=== PATIENT | male | born 1940 | race Caucasian/White ===

== ENCOUNTER → 2017-08-16 12:33 | Outpatient (CLI) | payer MEDICARE, OTHER ==
[2015-11-19 08:51] VITALS: BMI 27.8
[~2017-08-16 12:33] MED LIST: ASPIRIN EC325 M1 PO; ASPIRIN325 MG PO; BAYER CHEWABLE81 MG PO; CARAFATE1 G/10 ML PO; COVERA-HS240 MG PO; COZAAR100 MG PO; FLOMAX0.4 MG PO; HEMOCYTE PLUS PO; HUMALOG MIX 50/53 ML; HUMULIN N100 U/ML SC; HUMULIN R100 U/ML SC; IMDUR60 MG PO; LANTUS INSULIN10 ML SC; LASIX40 MG PO; LOPRESSOR25 MG PO; NEURONTIN 400400 MG PO; NORCO 5/325 TAB1 TA1 PO; NOVOLIN N100 U/ML SQ; PLAVIX75 MG PO; PROTONIX40 MG PO; ZOCOR10 MG PO; ZOCOR20 MG PO
== END | disposition home or self-care (01) ==
LOC: D.US 12:33
DX: I65.23 Occlusion and stenosis of bilateral carotid arteries (principal)

== ENCOUNTER → 2018-11-01 12:21 | Outpatient (CLI) | payer MEDICARE, OTHER ==
[2015-11-19 08:51] VITALS: BMI 27.8
== END | disposition home or self-care (01) ==
LOC: D.US 12:21
PROVIDERS: ATTEND Internal Medicine Cardiovascular Disease
DX: I65.23 Occlusion and stenosis of bilateral carotid arteries (principal)

== ENCOUNTER → 2019-03-14 09:10 | Outpatient (CLI) | payer MEDICARE, OTHER ==
[2015-11-19 08:51] VITALS: BMI 27.8
--- NOTE | 2019-03-19 18:38 | ST ---
PATIENT:MACK FUNG MEDICAL RECORD: [id number] SEX: M LOCATION:[facility] ORDER #: ADMISSION DATE: 03/14/19 AGE OF PATIENT: 78 REFERRING PHYSICIAN: INTERPRETING PHYSICIAN: MCKENZIE MARIA MD DATE OF SERVICE: 03/14/2019 NUCLEAR STRESS TEST INDICATION: Angina and coronary artery disease, shortness of breath, hypertension, and hyperlipidemia. He was exercised on standard Lexiscan protocol with 25 mCi of sestamibi injected at peak stress, 9 mCi used previously for rest images. FINDINGS: Gated SPECT reveals preserved ejection fraction is 64% with good wall motioning and thickening and brightening throughout all segments. SPECT imaging: Cardiolite was used as myocardial perfusion agent. There are definite reversible changes inferiorly, laterally, and apically. This includes basal, mid apical, inferior segments, apical lateral, mid lateral, basal lateral, as well as the apex itself. The degree of reversibility is moderate. The amount of myocardium involved is large. OVERALL IMPRESSION: This is an intermediate to high risk nuclear stress test with a large amount of myocardium at risk inferiorly, laterally, and apically suggestive of possible multivessel coronary artery disease. We will proceed with coronary angiography as followup study. TRANSINT:[id number] Voice Confirmation ID: [id number] DOCUMENT ID: [id number] MCKENZIE MARIA MD at 1838 CC: ZULEMA STARR MD [id number] DICTATION DATE: 03/15/19 1142 JEWEL BEARING BROACHER: 03/15/19 2309 DEP CLI 03/14/19 [place] [id number] [place] [id number]
== END | disposition home or self-care (01) ==
LOC: D.HCCARDIO 09:10
PROVIDERS: ATTEND Internal Medicine Interventional Cardiology
DX: I25.10 Atherosclerotic heart disease of native coronary artery without angina pectoris (principal)

== ENCOUNTER 2019-04-09 08:09 | Outpatient (CLI) | payer MEDICARE, OTHER ==
[~2019-04-09] VITALS: Ht 182.9 cm; Wt 94.5 kg
--- NOTE | ~2019-04-09 | HEMODYNAMI ---
PATIENT:MACK FUNG MEDICAL RECORD: [id number] : 40 LOCATION:D.CAT ADMISSION DATE: 04/09/19 Generatedon:04/09/201910:41 Patient name: MACK FUNG Patient #: [id number] : 1940 Date of study: 04/09/2019 Page: Of Hemodynamic Procedure Report Patient Data Patient Demographics Procedure consent was obtained First Name: MACK Gender: Male Last Name: KENTON : 1940 Middle Initial: ALEIDA Age: 78 year(s) Patient #: [id number] Race: SSN: [id number] Additional ID: [id number] Contact details [address]: [address] [place] [address] [employer] State: [place] City: [place] Zip code: [address] Past Medical History Performed procedures and imaging results Date Procedure Procedure Results Comments 03/19/2019 Stress testing Positive->Intermediate with SPECT MPI risk Allergies Allergen Reaction Date Comments Reported Codeine 03/12/2015 Other allergy 04/09/2019 lisinopril,codeine Admission Admission Data Admission Date: 04/09/2019 Admission Time: 8:09 Arrival Date: 04/09/2019 Arrival Time: 0:00 Admit Source: Other Insurance Payor: Medicare Height (in.): 72 BSA: 2.17 (m2) Height (cm.): 182.88 BMI: 28.4 (kg/m2) Weight (lbs.): 209.44 Weight (kg.): 95 Lab Results Lab Result Date: 04/09/2019 Lab Result Time: 0:00 Biochemistry Name Units Result Min Max BUN mg/dl 45 --(----)-* 7 18 Creatinine mg/dl 2.5 --(----)-* 0.6 1.3 eGFR ml/min 27 *-(----)-- 90 120 NONAFRICAN CBC Name Units Result Min Max Hemoglobin g/dl 13.9 --(*---)-- 13.5 17.5 Platelets 10^3/l 153 --(*---)-- 130 400 Procedure Procedure Types Cath Procedure Diagnostic Procedure [facility] w/Coronaries w/Grafts Sedation Charges Moderate Sedation up to 15 minutes PCI Procedure Coronary Stent Coronary Stent Initial Procedure Description Procedure Date Procedure Date: 04/09/2019 Procedure Start Time: 10:19 Procedure End Time: 10:39 Procedure Staff Name Function Amari Myers MD Performing Physician Chapito Rodriguez RT Monitor Azeem Guerrero RN Nurse Anthony Calderon RT Scrub Terri Mead RT Scrub Stiven Barajas RT Reinforcing Metal Worker Indication Angina Dyspnea with exertion Shortness of breath CAD Procedure Data Cath Procedure Fluoroscopy Diagnostic fluoroscopy Total fluoroscopy Time: 7 time: 7 min min Diagnostic fluoroscopy Total fluoroscopy dose: 979 dose: 979 mGy mGy Contrast Material Contrast Material Type Amount (ml) Isovue 300 75 Entry Location Entry Primary Successful Side Size Upsize Upsize Entry Closure Succes sful Closure Location (Fr) 1 (Fr) 2 (Fr) Remarks Device Remarks Femoral Right 5 Fr 6 Fr Exoseal artery Short Estimated blood loss: 10 ml Diagnostic catheters Device Type Used For End Catheter Placement MULTIPACK Pigtail 5 Fr Procedure catheter MULTIPACK JL 4.0 5Fr Procedure catheter MULTIPACK 3DRC 5Fr Procedure catheter DIAGNOSTIC AR2 MOD 5 Fr Procedure catheter ([id number]) Procedure Complications No complications Procedure Medications Medication Administration Route Dosage 0.9% NaCl I.V. 100 ml/hr Oxygen etCO2 Nasal cannula 2 l/min Heparin Flush Bag added to field 2 bags (1000units/500ml NS) Lidocaine 2% added to field 20 Versed I.V. 1 mg Fentanyl I.V. 50 mcg Heparin Bolus I.V. 4000 units Hemodynamics Rest BSA: 2.17 (m2) HGB: 13.9 (g/dl) O2 Consumption: Estimated: 244.49 (ml/min) O2 Co nsumption indexed: Estimated:112.67 (ml/min/m) Heart Rate: 65 (bpm) Snapshots Pre Cath Intra NCS Post Cath Vital Signs Time Heart Resp SPO2 etCO2 NIBP (mmHg) Rhythm Pain Sedation Rate (ipm) (%) (mmHg) Status Level (bpm) 10:09:55 66 13 96 39.6 133/66(103) NSR 0 (11) 10(A) , No pain 10:14:11 64 11 95 45 124/66(100) NSR 0 (11) 10(A) , No pain 10:18:25 63 11 96 44.9 124/63(94) NSR 0 (11) 10(A) , No pain 10:22:39 63 13 96 41.9 123/63(99) NSR 0 (11) 10(A) , No pain 10:26:51 63 13 96 40.4 125/65(95) NSR 0 (11) 9(A) , No pain 10:31:03 63 13 96 38.9 119/65(93) NSR 0 (11) 9(A) , No pain 10:35:15 63 13 96 39.6 120/65(94) NSR 0 (11) 9(A) , No pain 10:39:27 63 13 96 38.9 128/65(103) NSR 0 (11) 9(A) , No pain Medications Time Medication Route Dose Verified Delivered Reason Notes Effectiveness by by 10:07:47 0.9% NaCl I.V. 100 Azeem Azeem Per physician ml/hr Cesar Guerrero RN RN 10:08:03 Oxygen etCO2 2 Azeem Azeem for low 02 sats Nasal l/min Cesar Guerrero cannula RN RN 10:08:25 Heparin Flush added 2 Azeem Azeem used for Bag to bags Cesar Guerrero procedure (1000units/500ml field MCLEAN RN NS) 10:08:41 Lidocaine 2% added 20ml Azeem Azeem for local to vial Cesar Guerrero anesthetic field MCLEAN RN 10:19:23 Versed I.V. 1 mg Azeem Azeem for sedation Cesar Guerrero RN RN 10:19:31 Fentanyl I.V. 50 Azeem Azeem for sedation mcg Cesar Guerrero RN RN 10:28:08 Heparin Bolus I.V. 4000 Azeem Azeem for units Cesar Guerrero anticoagulation RN cloth wire weaver Log Time Note 9:40:56 Azeem Guerrero RN sent for patient. Start room use. 9:47:20 Procedure Status Elective Heart Cath (OP). 9:49:58 Time tracking: Regular hours (M-F 7:00 - 5:00) 9:50:02 Plan of Care:Hemodynamics will remain stable., Cardiac rhythm will remain stable., Comfort level will be maintained., Respiratory function will remain adequate., Patient/ family verbilizes understanding of procedure., Procedure tolerated without complication., Recovers from procedure without complications.. 9:53:27 Arrival Date: 04/09/2019 12:00:00 AM 9:53:30 Admit Source: Other 9:53:37 Insurance Payor : Medicare 9:54:31 Patient Height : 72 inches 9:54:34 Patient Weight : 209.44 lbs 9:58:24 Lab Result : Hemoglobin 13.9 g/dl 9:58:24 Lab Result : Platelets 153 10^3/l 9:58:24 Lab Result : eGFR NONAFRICAN 27 ml/min 9:58:24 Lab Result : BUN 45 mg/dl 9:58:24 Lab Result : Creatinine 2.5 mg/dl 9:58:48 Patient received from Pre/Post Procedure Room to CCL 1 Alert and oriented. Tansferred to table in Supine position. 9:58:51 Signed procedure consent form obtained from patient. 9:58:52 Warm blankets applied, and gely hugger turned on for patient comfort. 9:58:52 Correct patient and procedure confirmed by team. 9:58:53 ECG and BP/O2 sat monitors applied to patient. 9:58:58 ACC Patient presents with Stable Angina CCS Anginal Class 3--Marked limitation of physical activity, angina occurs with ordinary activity.. 9:59:05 ACCPatient has been prescribed/administered the following anti-anginal medication within the last 2 weeks: Beta Sabrina, Calcium Channel Blockers, Long-Acting Nitrates, GALILEA-Inhibitor 10:07:47 0.9% NaCl 100 ml/hr I.V. was administered by Azeem Guerrero RN; Per physician; 10:08:03 Oxygen 2 l/min etCO2 Nasal cannula was administered by Azeem Guerrero RN; for low 02 sats; 10:08:25 Heparin Flush Bag (1000units/500ml NS) 2 bags added to field was administered by Azeem Guerrero RN; used for procedure; 10:08:41 Lidocaine 2% 20ml vial added to field was administered by Azeem Guerrero RN; for local anesthetic; 10:08:48 Vital chart was started 10:10:22 Baseline sample Acquired. 10:10:28 Rhythm: sinus rhythm 10:10:29 Full Disclosure recording started 10:10:42 H&P Date Dictated: 04/02/2019 Within 30 days and on chart., H&P Addendum completed by physician on day of procedure. (MUST COMPLETE FOR ALL OUTPATIENTS). 10:11:40 Pre-procedure instructions explained to patient. 10:11:40 Pre-op teaching completed and patient verbalized understanding. 10:11:42 Family in waiting room. 10:11:44 Patient NPO since Midnight. 10:11:58 Patient allergic to Other allergylisinopril,codeine 10:12:13 Is the patient allergic to Iodine/contrast media? No. 10:12:20 Is patient on blood thinner?Yes 10:12:22 ACC The patient was administered the following blood thiners within the last 24 hours: ACCAspirin, ACCPlavix 10:12:24 Patient diabetic? Yes. 10:12:25 If diabetic: On Metformin? No 10:12:27 Previous problem with sedation/anesthesia? No ? 10:12:28 Snore? Yes 10:12:29 Sleep apnea? Yes 10:12:30 Deviated septum? No 10:12:30 Opens mouth fully? Yes 10:12:31 Sticks out tongue? Yes 10:12:33 Airway obstruction? No ? 10:12:36 Dentures? Yes in tight 10:12:39 Pre procedure: right dorsailis pedis pulse 2+ Normal; easily identifiable; not easily obliterated 10:12:41 Patient pain scale 0/10 ?. 10:12:49 IV patent on arrival in left forearm with 0.9% NaCl at O. 10:12:51 Lab results completed and on chart. 10:12:54 Right groin area was prepped with chlora-prep and draped in sterile fashion 10:12:54 Alarms reviewed by R. N. 10:12:55 Sharps counted by scrub and verified by R.N. 10:12:56 Use device set Femoral Dx 10:12:57 ACIST Syringe (66290) opened to sterile field. 10:12:58 Bag Decanter () opened to sterile field. 10:12:58 Medline Cath Pack ([id number]) opened to sterile field. 10:12:59 ACIST Hand Control (63947) opened to sterile field. 10:12:59 ACIST Manifold (11543) opened to sterile field. 10:13:01 DIAGNOSTIC Multipack 5Fr catheter set (VV9469) opened to sterile field. 10:13:02 Tegaderm 4 x 4 (1626W) opened to sterile field. 10:13:03 EMERALD Guide Wire (408-938) opened to sterile field. 10:13:03 SHEATH 5FR [place] (WDC550) opened to sterile field. 10:13:18 Diagnostic Cath Status : Elective 10:13:50 Indication : Angina 10:13:56 Indication : Dyspnea with exertion 10:14:04 Indication : Shortness of breath 10:14:10 Indication : CAD 10:17:09 Physician arrived 10:17:10 --------ALL STOP TIME OUT------ 10:17:10 Final Timeout: patient, procedure, and site verified with staff and physician. All members of the team are in agreement. 10:17:11 Right groin site verified by team. 10:17:14 Fire Safety Assessment: A--An alcohol-based skin anteseptic being used preoperatively., C--Open oxygen or nitrous oxide is being used., D--An ESU, laser, or fiber-optic light is being used. 10:17:16 Physical assessment completed. ASA score P 2 - A patient with mild systemic disease as per Amari Myers MD. 10:17:27 4) 15-29 [place]ley reduced kidney function. 10:17:40 Maximum allowable contrast dose (3.7 X eGFR X 0.75)75 ml. 10:17:43 Sedation plan: IV Moderate Sedation Medication:Versed, Fentanyl 10:19:23 Versed 1 mg I.V. was administered by Azeem Guerrero RN; for sedation; 10:19:31 Fentanyl 50 mcg I.V. was administered by Azeem Guerrero RN; for sedation; 10:19:33 Procedure started. 10:19:36 Local anesthetic to right femoral artery with Lidocaine 2% by Amari Myers MD.INITIAL ACCESS ONLY 10:19:43 A 5 Fr sheath was inserted into the Right Femoral artery 10:20:19 A MULTIPACK Pigtail 5 Fr catheter was advanced over the wire and used for Procedure. 10:20:44 LV gram done using SERVIN 10:20:48 Injector settings: Ml/sec: 10, Volume: 20, 10:20:49 LV hemodynamics recorded. 10:20:53 EF : 60 % 10:20:54 Catheter exchanged over wire. 10:20:59 A MULTIPACK JL 4.0 5Fr catheter was advanced over the wire and used for Procedure. 10:22:07 LCA angiography performed. 10:23:12 Catheter exchanged over wire. 10:23:25 INFLATOR Merit BasixCompak (SG2185) opened to sterile field. 10:24:39 SHEATH 6FR [place] (FPC916) opened to sterile field. 10:24:53 GUIDE 6FR XBLAD 3.5 catheter ([id number]) opened to sterile field. 10:24:55 CHOICE PT Extra Support 182cm wire ([id number]) opened to sterile field. 10:25:11 A MULTIPACK 3DRC 5Fr catheter was advanced over the wire and used for Procedure. 10:25:13 MAX to LAD angiography performed. 10:25:15 RCA angiography performed. 10:25:21 A DIAGNOSTIC AR2 MOD 5 Fr catheter (357876I) was advanced over the wire and used for Procedure. 10:26:10 SVG to RCA angiography performed. 10:26:29 Catheter removed. 10:26:35 Sheath upsized to a 6 Fr Short. 10:26:45 6 Fr XBLAD 3.5 guide catheter was inserted over the wire 10:27:30 Zero performed for pressure channel P1 10:27:43 ACCDominant side:Co-Dominant 10:28:08 Heparin Bolus 4000 units I.V. was administered by Azeem Guerrero RN; for anticoagulation; 10:28:25 CHOICE PT ES wire advanced. 10:28:50 ACC Pre-intervention JAQUELIN Flow is 3. 10:28:58 Pre PCI Site: [place] Diag1 has 90% stenosis. 10:30:50 WHISPER 190cm wire ([id number]) opened to sterile field. 10:31:02 Wire removed. unable to cross lesion. 10:31:08 WHISPER wire advanced. 10:33:50 Wire advanced across lesion. 10:35:04 Place stent Inflation Number: 1 A AVRIL RX 3.0 x 18 stent ([id number]) was prepped and advanced across the 1st Diag . The stent was deployed at 13 RAUL for 0:10 (min:sec) . 10:35:21 ACC Post-intervention JAQUELIN Flow is 3. 10:35:25 Post PCI Site: [place] Diag1 has 0% stenosis. 10:35:27 Stent catheter was removed intact over wire. 10:35:28 Wire removed. 10:35:28 Guide catheter removed. 10:35:34 EXOSEAL 6Fr (EX600) opened to sterile field. 10:35:41 Sheath removed intact; hemostasis achieved with Exoseal to the Right Femoral artery. 10:35:42 Procedure ended.(Physican Out) 10:38:01 Fluoroscopy time 07.00 minutes. 10:38:05 Fluoroscopy dose: 979 mGy 10:38:05 Flurop Dose total: 979 10:38:12 Dose Area Product 78603 mGy/cm. 10:38:15 Contrast amount:Isovue 300 75ml. 10:38:16 Maximum allowable dose exceeded? No. 10:38:17 Sharps counted by scrub and verified by R.N. 10:38:18 Insertion/operative site no bleeding no hematoma. 10:38:20 Post-op/insertion site Right Femoral artery dressed using a 4 x 4 and Tegaderm. 10:38:23 Post right femoral artery:stable, soft, clean and dry 10:38:25 Post Procedure Pulses reassessed and unchanged 10:38:27 Post-procedure physical assessment completed. ASA score P 2 - A patient with mild systemic disease as per Amari Myers MD. 10:38:29 Post procedure rhythm: unchanged. 10:38:31 Estimated blood loss: 10 ml 10:38:32 Post procedure instruction explained to patient.Patient verbalizes understanding. 10:38:33 Patient needs reinforcement of post procedure teaching. 10:38:53 Procedure type changed to Cath procedure, Diagnostic procedure, LHC, LHC w/Coronaries w/Grafts, Sedation Charges, Moderate Sedation up to 15 minutes, PCI procedure, Coronary Stent, Coronary Stent Initial 10:39:19 Procedure and supply charges have been captured, reviewed, submitted and are correct. 10:39:21 Procedure Complication : No complications 10:39:23 Vital chart was stopped 10:39:24 See physician's report for complete and final results. 10:39:26 Report given to Pre/Post Procedure Room. 10:39:28 Patient transfered to Pre/Post Procedure Room with Stretcher. 10:39:30 Procedure ended. 10:39:30 Full Disclosure recording stopped 10:39:36 ACC-PCI Only Patient was given prescriptions, or instructed by Amari Myers MD to start/continue the following medications upon discharge: Aspirin, Plavix 10:39:37 End room use (Document Last) Intervention Summary Intervention Notes Time ActionType Lesion and Equipment Used Action# Pressure Duration Attributes 10:35:04 Place stent 1st Diag AVRIL RX 3.0 x 1 13 00:10 18 stent ([id number]) Device Usage Item Name Manufacture Quantity Catalog Number Hospital Part Current M inimal Lot# / Charge Number Stock Stock Serial# Code ACIST Syringe Acist 1 26088 830816 932274 779409 2 0 (02402) Medical Systems Inc Bag Decanter Microtek 1 2001S 052403 98604 375753 5 (2001S) Medical Inc. Medline Cath Medline 1 [id number] 086306 72784 423688 5 Pack ([id number]) ACIST Hand Acist 1 97450 678142 019047 481527 5 Control Medical (05714) Systems Inc ACIST Manifold Acist 1 47232 232224 096178 814855 5 (39778) Medical Systems Inc DIAGNOSTIC Cardinal 1 [id number] 145606 78495 376871 3 0 Multipack 5Fr Health catheter set (CB2996) Tegaderm 4 x 4 3M 1 1626W 948014 382798 357217 5 (1626W) EMERALD Guide Cardinal 1 502-455 084687 587263 179232 5 Wire (502-455) Health SHEATH 5FR Terumo 1 VEY737 657642 915909 172816 5 [place] (AZV476) MULTIPACK Cardinal 1 357302 5 Pigtail 5 Fr Health catheter MULTIPACK JL Cardinal 1 550906 5 4.0 5Fr Health catheter INFLATOR Merit Merit 1 IB2662 424193 310844 041214 1 5 Tripology Medical (UP9504) SHEATH 6FR Terumo 1 YMO643 830485 268375 060975 4 0 [place] (WFP254) GUIDE 6FR Cardinal 1 [id number] 727688 381698 103577 1 0 XBLAD 3.5 Health catheter ([id number]) CHOICE PT Cummings 1 [id number] 351939 896477 026169 5 Extra Support Scientific 182cm wire ([id number]) MULTIPACK 3DRC Cardinal 1 128584 5 5Fr catheter Health DIAGNOSTIC AR2 Cardinal 1 900073Q 384942 268601 367129 2 0 MOD 5 Fr Health catheter (907861T) WHISPER 190cm Puga 1 [id number] 657461 620292 582670 5 wire Vascular ([id number]) AVRIL RX 3.0 x Medtronic 1 [id number] 370444 2356191 947543 5 [id number] 18 stent ([id number]) EXOSEAL 6Fr Cardinal 1 EX600 707522 030248 881281 1 0 (EX600) Health Signature Audit Gravel Switch Stage Time Signature Unsigned Intra-Procedure 04/09/2019 Chapito Rodriguez 10:40:56 AM RT(R) Signatures Performing Physician : Signature : Amari Myers MD Date : Time : Monitor : Chapito Rodriguez RT Signature : Date : Time : Nurse : Azeem Guerrero Signature : RN Date : Time : [facility] [address] [place] [place], [place] [address]
[2019-04-09] MEDS ORDERED: NORVASC10 MG PO (08:19)
[2019-04-09] MEDS ORDERED: HYDROCHLOROTH12.5 M1 PO (08:20)
[2019-04-09] MEDS ORDERED: BAYER CHEWABLE81 MG PO (08:20)
[2019-04-09] MEDS ORDERED: NOVOLIN 70/30 110 ML SC (08:21)
[2019-04-09] MEDS ORDERED: TOPROL XL25 MG PO (08:22)
[2019-04-09] MEDS ORDERED: ACETAMINOPHEN325 MG PO (08:23)
[2019-04-09 08:32] VITALS: BP 152/70; Ht 182.9 cm; Wt 94.5 kg
[2019-04-09 08:42] LABS: BASOPHILS 0.2 % (0-2); HEMATOCRIT 39.5 % (42.0-54.0); HEMOGLOBIN 13.9 g/dL (13.5-17.5); IMMATURE GRANULOCYTES 0.2 % (0-5); LYMPHOCYTES 19.6 % (15-50); MCHC 35.2 g/dL (31.0-37.0); MCV 82.5 fL (80.0-100.0); MEAN PLATELET VOLUME 10.4 fL (7.4-10.4); MONOCYTES 6.9 % (2-11); NEUTROPHILS 71.1 % (40-80); RBC 4.79 10x6/uL (4.20-6.10); RDW 13.1 % (11.5-14.5); WBC 9.3 10x3/uL (4.8-10.8)
[2019-04-09 08:57] LABS: PLATELET COUNT 153 10x3/uL (130-400)
[2019-04-09 08:58] LABS: ANION GAP 14.2 mmol/L (8-16); CALCIUM 9.6 mg/dL (8.5-10.1); CARBON DIOXIDE 26.2 mmol/L (21.0-32.0); CREATININE - SERUM 2.5 mg/dL (0.6-1.3); POTASSIUM - SERUM 4.4 mmol/L (3.5-5.1)
[2019-04-09 09:04] LABS: ALT (SGPT) 20 U/L (10-68)
--- NOTE | 2019-04-09 11:05 | NUR ---
2L NC, NO RESP DISTRESS. RIGHT GROIN 6F EXOSEAL CDI, NO BLEEDING OR HEMATOMA NOTED. NO C/O PAIN OR NAUSEA. VSS. CALL LIGHT WITHIN REACH.
--- NOTE | 2019-04-09 11:35 | NUR ---
RIGHT GROIN 6F EXOSEAL CDI, NO BLEEDING OR HEMATOMA NOTED. NO C/O PAIN OR NAUSEA. VSS. FAMILY AT BEDSIDE. WILL CONTINUE TO MONITOR.
--- NOTE | 2019-04-09 11:50 | NUR ---
RESTING QUIETLY WITH EYES CLOSED. RIGHT GROIN 6F EXOSEAL CDI, NO BLEEDING OR HEMATOMA NOTED. DENIES ANY NEEDS. VSS. CALL LIGHT WITHIN REACH.
--- NOTE | 2019-04-09 12:20 | NUR ---
CONTINUES TO REST COMFORTABLY WITH NO C/O. RIGHT GROIN 6F EXOSEAL CDI, NO BLEEDING OR HEMATOMA NOTED. DENIES ANY NEEDS AT THIS TIME. VSS. CALL LIGHT WITHIN REACH.
--- NOTE | 2019-04-09 13:35 | NUR ---
HOB ELEVATED 30 DEGREES. RIGHT GROIN 6F EXOSEAL CDI, NO BLEEDING NOTED. SIPPING ON DRINK AND EATING SANDWICH WITH NO C/O NAUSEA. VSS. WILL CONTINUE TO MONITOR CLOSELY.
--- NOTE | 2019-04-09 14:05 | NUR ---
LEFT PIV D/C'D WITH CATHETER INTACT, BAND AID TO SITE. RIGHT GROIN 6F EXOSEAL CDI WITH NO BLEEDING NOTED. UP TO BEDSIDE TO GET DRESSED. AMBULATED TO RESTROOM.
--- NOTE | 2019-04-09 14:20 | NUR ---
DISCHARGE INSTRUCTIONS GIVEN TO PT AND . BOTH VERBALIZED UNDERSTANDING.
--- NOTE | 2019-04-09 14:32 | NUR ---
TAKEN OUT VIA WHEELCHAIR BY CATH BRUSH CLEANER. LEFT FACILITY WITH FAMILY AND ALL PERSONAL BELONGINGS.
--- NOTE | 2019-04-10 09:53 | OP ---
PATIENT NAME: MACK FUNG MEDICAL RECORD: [id number] :40 LOCATION:D.CAT ADMISSION DATE: SURGEON: MCKENZIE MARIA MD DATE OF OPERATION: 04/09/2019 PROCEDURES: 1. PTCA stent LAD diagonal. 2. Left heart catheterization. 3. Selective coronary angiography. 4. Left ventriculogram. 5. Vein graft angiography. 6. MAX angiography. INDICATION: Angina and coronary artery disease. PROCEDURE IN DETAIL: After informed consent was obtained and after a detailed description of risks, benefits as well as alternative therapies, the patient elected to proceed with angiogram and angioplasty. The right femoral area was prepped and draped in normal sterile fashion. The right femoral artery was cannulated via modified Seldinger technique with placement of 6-Amharic sheath. All catheters exchanged through this sheath. FINDINGS: Left ventriculogram was performed in standard 30-degree SERVIN view reveals preserved ejection fraction at 55% to 60%. SELECTIVE CORONARY ANGIOGRAPHY: 1. Left main is with no significant angiographic disease. 2. Left anterior descending has 90% stenosis leading into a non-grafted large diagonal. The LAD is then totally occluded after that. 3. MAX to the distal LAD is widely patent. Distal LAD is diffusely diseased widely patent. 4. Left circumflex has moderate irregularities, but no flow-limiting stenosis. 5. Right coronary artery is totally occluded. 6. Vein graft to the right coronary is widely patent. Distal right coronary is widely patent. PTCA STENT OF THE LAD DIAGONAL: The stent used was a 3.0 x 18 mm [place]. Result was 0% residual stenosis. OVERALL IMPRESSION: Successful percutaneous transluminal coronary angioplasty stent of the left anterior descending diagonal going from 90+ percent initial stenosis to 0% residual. TRANSINT:[id number] Voice Confirmation ID: [id number] DOCUMENT ID: [id number] MCKENZIE MARIA MD at 0953 CC: [id number] DICTATION DATE: 04/09/19 1041 DESIGN LEADER: 04/09/19 1136 DEP CLI 04/09/19 [facility] [address] [place] [id number]
== END 2019-04-09 14:32 | disposition home or self-care (01) ==
LOC: D.CATH 08:09
PROVIDERS: ATTEND Internal Medicine Interventional Cardiology
DX: I25.110 Atherosclerotic heart disease of native coronary artery with unstable angina pectoris (principal); R06.02 Shortness of breath; R94.30 Abnormal result of cardiovascular function study, unspecified
CPT/HCPCS: C9600; 93459

== ENCOUNTER 2019-06-22 16:45 | Inpatient (IN) | payer MEDICARE, OTHER ==
[~2019-06-22] VITALS: Ht 182.9 cm; Wt 63.9 kg
[~2019-06-22 16:45] MED LIST changes: +ACETAMINOPHEN325 MG PO; +HYDROCHLOROTH12.5 M1 PO; +NORVASC10 MG PO; +NOVOLIN 70/30 110 ML SC; +TOPROL XL25 MG PO
--- NOTE | 2019-06-22 17:15 | NUR ---
RECEIVED DIRECT ADMIT FROM DR DOMÍNGUEZ 79 Y/O MALE VIA W/C AND PRESENT. ABLE TO STAND BUT IS UNSTEADY AND WEAK. TOOK TO THE BATHROOM AND URINATED THEN ASSISTED TO THE BED. NAOMY ALARM IS ON. ALERT ABLE TO VOICE NEEDS. RESP EVEN WITHOUT LABOR. STATES I AM JUST WEAK. SAYS HE ROLLED OUT OF THE BED AND SHE COULDNT GET HIM UP TO GOOD SO THEY WENT TO THE DOCTOR. SALINE LOCK STARTED IN RIGHT FOREARM. ORIENT TO ROOM AND USE OF CALL LIGHT. AT BEDSIDE. SUPPER TRAY WAS ORDERED. BBS ARE CLEAR.
--- NOTE | 2019-06-22 17:45 | NUR ---
DR STARR HERE AND PUT IN MED ORDERS. HE IS AWARE OF CURRENT VITAL SIGNS.
[2019-06-22 18:02] VITALS: BP 147/72; BMI 27.6
--- NOTE | 2019-06-22 19:46 | NUR ---
REPORT RECIEVED AND ROUNDING COMPLETE. PATIENT LAYING IN BED IN HIGH FOWLERS POSITION. PATIENT'S EYES CLOSED BREATHING EVEN AND UNLABORED. PATIENT HAS A LEFT FOREARM PIV THAT IS SALINE LOCKED. PIV SHOWING NO S/SX OF INFILTRATION OR INFECTION. CALL LIGHT WITHIN REACH AND BED IN LOWEST LOCKED POSITON. PATIENT DOES HAVE A NAOMY ALARM ON BECAUSE PATIENT IS REPORTED TO BE VERY WEAK. PATIENT IS SHOWING NO S/SX OF DISTRESS AT THIS TIME.
[2019-06-22 20:00] VITALS: BP 154/75
[2019-06-23] VITALS (7 sets, daily range): BP systolic 118–172; BP diastolic 62–82; Ht 182.9 cm; Wt 63.9 kg
--- NOTE | 2019-06-23 02:33 | NUR ---
I have reviewed this patient and I concur with the Shift Assessment completed by the Licensed Practical Nurse today this shift.
[2019-06-23 04:56] LABS: BASOPHILS 0.1 % (0-2); EOSINOPHILS 0 % (0-7); HEMATOCRIT 37.5 % (42.0-54.0); HEMOGLOBIN 12.5 g/dL (13.5-17.5); IMMATURE GRANULOCYTES 0.3 % (0-5); LYMPHOCYTES 8.5 % (15-50); MCH 28.6 pg (26.0-34.0); MCHC 33.3 g/dL (31.0-37.0); MCV 85.8 fL (80.0-100.0); MEAN PLATELET VOLUME 10.2 fL (7.4-10.4); MONOCYTES 8.8 % (2-11); NEUTROPHILS 82.3 % (40-80); PLATELET COUNT 124 10x3/uL (130-400); RBC 4.37 10x6/uL (4.20-6.10); RDW 12.9 % (11.5-14.5); WBC 10.9 10x3/uL (4.8-10.8)
[2019-06-23 05:07] LABS: ALBUMIN 3.2 g/dL (3.4-5.0); ANION GAP 14.9 mmol/L (8-16); CALCIUM 8.9 mg/dL (8.5-10.1); CARBON DIOXIDE 24.1 mmol/L (21.0-32.0); CREATININE - SERUM 2.4 mg/dL (0.6-1.3); PROTEIN - SERUM 7.7 g/dL (6.4-8.2)
--- NOTE | 2019-06-23 07:00 | NUR ---
RECEIVED REPORT. ASSUMED CARE OF PATIENT. RESTING WITH EYES CLOSED. RESP EVEN AND UNLABORED. CALL LIGHT WITHIN REACH. NO FAMILY AT BEDSIDE. PATIENT IS EASILY AROUSED. NO DISTRESS. DENIES NEEDS.
--- NOTE | 2019-06-23 10:08 | NUR ---
PATIENT PROVIDED WITH A CLEAN URINAL AT THIS TIME AND GAVE INSTRUCTIONS TO USE THIS URINAL WHEN HE VOIDS NEXT IN ORDER TO OBTAIN A SPECIMEN. PATIENT VERBALIZED HIS UNDERSTANDING.
--- NOTE | 2019-06-23 11:40 | NUR ---
RESTING IN BED WITH EYES CLOSED. NO DISTRESS. PATIENT AT BEDSIDE. CALL LIGHT WITHIN REACH.
--- NOTE | 2019-06-23 11:55 | NUR ---
FSBS 194. 8 UNITS HUMULIN R ADMINISTERED PER SLIDING SCALE.
--- NOTE | 2019-06-23 11:58 | NUR ---
PATIENT WITH LOW GRADE TEMP. ADMINISTERED TYLENOL AT THIS TIME.
[2019-06-23 13:22] LABS: APPEARANCE CLEAR (CLEAR); BILIRUBIN NEGATIVE (NEGATIVE); COLOR YELLOW (YELLOW); GLUCOSE 100 mg/dL (NEGATIVE); KETONE NEGATIVE (NEGATIVE); NITRITE NEGATIVE (NEGATIVE); PROTEIN TRACE mg/dL (NEGATIVE); SPECIFIC GRAVITY 1.015 (1.005-1.020); UROBILINOGEN NORMAL (NORMAL)
--- NOTE | 2019-06-23 14:20 | NUR ---
RESTING IN BED WITH EYES CLOSED. PATIENTS HAS LEFT FOR A LITTLE BIT. CALL LIGHT WITHIN REACH. NO DISTRESS.
--- NOTE | 2019-06-23 17:14 | NUR ---
FSBA 164. 50 UNITS 70/30 AND 8 UNITS HUMULIN R ADMINISTERED AT THIS TIME PER MD ORDERS. ATE 100% OF PM MEAL.
--- NOTE | 2019-06-23 20:09 | NUR ---
PT A/O X4 RR EVEN AND UNLABORED AT THIS TIME. TEMP-103.0 SCHEDULED TYLENOL GIVEN AT THIS TIME. ICE PACK PLACE AROUND PT NECK. ICE WATER GIVEN. BED LOW CALL LIGHT WITHIN REACH. WILL CONTRINUE TO MONITOR.
--- NOTE | 2019-06-23 21:00 | NUR ---
PT TEMP-103.1 ICE PACKS APPLIED. WILL CONTINUE TO MONITOR. FSBS-279
--- NOTE | 2019-06-23 22:09 | NUR ---
PT TEMP 100.9. PT REQUEST FREDERICK. PT STATES HE IS FEELING BETTER. URINE COLLECTED. WILL CONTINUE TO MONITOR.
[2019-06-23 22:54] LABS: APPEARANCE HAZY (CLEAR); BILIRUBIN NEGATIVE (NEGATIVE); COLOR YELLOW (YELLOW); GLUCOSE 500 mg/dL (NEGATIVE); KETONE NEGATIVE (NEGATIVE); NITRITE NEGATIVE (NEGATIVE); PROTEIN NEGATIVE (NEGATIVE); SPECIFIC GRAVITY 1.015 (1.005-1.020); UROBILINOGEN NORMAL (NORMAL)
--- NOTE | 2019-06-24 01:16 | NUR ---
I have reviewed this patient and I concur with the Shift Assessment completed by the Licensed Practical Nurse today this shift.
[2019-06-24 04:00] VITALS: BP 165/69
--- NOTE | 2019-06-24 05:15 | NUR ---
PT TEMP 101.9. PRN TYLENOL GIVEN. WILL CONTINUE TO MONITOR.
[2019-06-24 05:17] LABS: BASOPHILS 0.1 % (0-2); EOSINOPHILS 0.1 % (0-7); HEMATOCRIT 38.3 % (42.0-54.0); HEMOGLOBIN 12.9 g/dL (13.5-17.5); IMMATURE GRANULOCYTES 0.3 % (0-5); LYMPHOCYTES 10.4 % (15-50); MCH 28.6 pg (26.0-34.0); MCHC 33.7 g/dL (31.0-37.0); MCV 84.9 fL (80.0-100.0); MEAN PLATELET VOLUME 10.6 fL (7.4-10.4); MONOCYTES 11.2 % (2-11); NEUTROPHILS 77.9 % (40-80); PLATELET COUNT 142 10x3/uL (130-400); RBC 4.51 10x6/uL (4.20-6.10); RDW 12.7 % (11.5-14.5); WBC 9.5 10x3/uL (4.8-10.8)
[2019-06-24 05:33] LABS: ALBUMIN 3.1 g/dL (3.4-5.0); ANION GAP 12.1 mmol/L (8-16); BILIRUBIN - TOTAL 0.77 mg/dL (0.2-1.3); CALCIUM 8.9 mg/dL (8.5-10.1); CARBON DIOXIDE 25.6 mmol/L (21.0-32.0); CREATININE - SERUM 2.8 mg/dL (0.6-1.3); POTASSIUM - SERUM 3.7 mmol/L (3.5-5.1); PROTEIN - SERUM 7.6 g/dL (6.4-8.2)
--- NOTE | 2019-06-24 07:00 | NUR ---
RECEIVED REPORT. ASSUMED CARE OF PATIENT. PATIENT RESTING WITH EYES CLOSED. RESP EVEN AND UNLABORED. CALL LIGHT WITHIN REACH. NO DISTRESS.
[2019-06-24 08:56] VITALS: BP 117/60
--- NOTE | 2019-06-24 11:24 | NUR ---
PATIENT SITTING UP IN CHAIR AT BEDSIDE. HERE TO VISIT. CALL LIGHT WITHIN REACH.
--- NOTE | 2019-06-24 11:31 | NUR ---
FSBS 231. 12 UNITS HUMULIN R ADMINISTERED PER SLIDING SCALE.
--- NOTE | 2019-06-24 16:49 | NUR ---
FSBS 247. 50 UNITS 70/30 AND 8 UNITS HUMULIN R ADMINISTERED ORDERED. NO DISTRESS.
--- NOTE | 2019-06-24 19:10 | NUR ---
EVENING ROUNDS COMPLETED. PATIENT RESTING, SITTING UP IN BED. NO C/O PAIN OR DISCOMFORT. DENIES HAVING ANY NEEDS AT THIS TIME. BED IN LOWEST POSITION. SIDE RAILS UP. CALL LIGHT IN REACH. WILL CONTINUE TO MONITOR.
[2019-06-24 20:00] VITALS: BP 115/54
--- NOTE | 2019-06-24 22:40 | NUR ---
PATIENT'S TEMP IS 102.3. REPEAT BLOOD CULTURES ORDERED PER DR HERRERA.
[2019-06-25] VITALS: BP 99/52
--- NOTE | 2019-06-25 04:30 | NUR ---
PATIENT RESTING IN BED WITH EYES CLOSED. NO SIGNS OF DISTRESS. BED IN LOWEST POSITION. SIDE RAILS UP. CALL LIGHT IN REACH. WILL CONTINUE TO MONITOR.
[2019-06-25 04:31] LABS: BASOPHILS 0.2 % (0-2); EOSINOPHILS 0.6 % (0-7); HEMATOCRIT 32.4 % (42.0-54.0); HEMOGLOBIN 10.8 g/dL (13.5-17.5); IMMATURE GRANULOCYTES 0.1 % (0-5); LYMPHOCYTES 15.7 % (15-50); MCH 28.2 pg (26.0-34.0); MCHC 33.3 g/dL (31.0-37.0); MCV 84.6 fL (80.0-100.0); MEAN PLATELET VOLUME 10.1 fL (7.4-10.4); MONOCYTES 13.1 % (2-11); NEUTROPHILS 70.3 % (40-80); PLATELET COUNT 133 10x3/uL (130-400); RBC 3.83 10x6/uL (4.20-6.10); RDW 12.9 % (11.5-14.5); WBC 9.4 10x3/uL (4.8-10.8)
[2019-06-25 04:56] LABS: ALBUMIN 2.6 g/dL (3.4-5.0); ANION GAP 14.2 mmol/L (8-16); BILIRUBIN - TOTAL 0.51 mg/dL (0.2-1.3); CALCIUM 8.2 mg/dL (8.5-10.1); CARBON DIOXIDE 26.4 mmol/L (21.0-32.0); POTASSIUM - SERUM 3.6 mmol/L (3.5-5.1)
[2019-06-25 05:07] LABS: CREATININE - SERUM 4.2 mg/dL (0.6-1.3)
[2019-06-25 09:04] VITALS: BP 132/62
--- NOTE | 2019-06-25 11:10 | NUR ---
PATIENT ON DROPLET PRECAUTIONS. CALLED EARLIER. HE VERBALIZED HIS CONSENT FOR ME TO SPEAK TO HER. CHAIR ALARM ON. CL IN REACH. WCTM
[2019-06-25 14:05] LABS: COMPLEMENT C4 47.4 mg/dL (17.4-52.2)
[2019-06-25 14:26] LABS: APPEARANCE CLEAR (CLEAR); BILIRUBIN NEGATIVE (NEGATIVE); COLOR YELLOW (YELLOW); GLUCOSE 500 mg/dL (NEGATIVE); KETONE NEGATIVE (NEGATIVE); NITRITE NEGATIVE (NEGATIVE); PROTEIN NEGATIVE (NEGATIVE); SPECIFIC GRAVITY 1.015 (1.005-1.020); UROBILINOGEN NORMAL (NORMAL)
[2019-06-25 14:35] LABS: CREATININE - URINE 140.5 mg/dL (30-125); PRO/CRE RATIO URINE 0.6 mg/g; PROTEIN - URINE 81.5 mg/dL (0.0-11.9)
[2019-06-25 14:54] LABS: ERYTHROCYTE SEDIMENTATION RATE 73 mm/hr (0-20)
[2019-06-25 14:57] VITALS: BP 98/53
[2019-06-25 18:15] VITALS: BP 119/58
--- NOTE | 2019-06-25 19:35 | NUR ---
PT SITTING UP IN BED. CL IN REACH. DENIES NEEDS AT THIS TIME. BED IN LOW SIDE RAILS X2. LUNGS CLEAR. BOWEL ACTIVE X4. RESP EVEN AND UNLABORED. A/O X4. DROPLET ISOLATION. WILL CONTINUE TO MONITOR.
[2019-06-25 19:42] VITALS: BP 115/65
[2019-06-25 23:49] VITALS: BP 112/49
[2019-06-26 04:48] VITALS: BP 119/58
[2019-06-26 06:08] LABS: BASOPHILS 0.3 % (0-2); EOSINOPHILS 1.6 % (0-7); HEMATOCRIT 32.4 % (42.0-54.0); HEMOGLOBIN 10.9 g/dL (13.5-17.5); IMMATURE GRANULOCYTES 0.3 % (0-5); LYMPHOCYTES 12.8 % (15-50); MCH 28.5 pg (26.0-34.0); MCHC 33.6 g/dL (31.0-37.0); MCV 84.8 fL (80.0-100.0); MONOCYTES 12.2 % (2-11); NEUTROPHILS 72.8 % (40-80); PLATELET COUNT 140 10x3/uL (130-400); RBC 3.82 10x6/uL (4.20-6.10); WBC 7.4 10x3/uL (4.8-10.8)
[2019-06-26 06:53] LABS: ALBUMIN 2.5 g/dL (3.4-5.0); ANION GAP 14.8 mmol/L (8-16); BILIRUBIN - TOTAL 0.46 mg/dL (0.2-1.3); CALCIUM 8.1 mg/dL (8.5-10.1); CARBON DIOXIDE 24.8 mmol/L (21.0-32.0); CREATININE - SERUM 3.9 mg/dL (0.6-1.3); POTASSIUM - SERUM 3.6 mmol/L (3.5-5.1); PROTEIN - SERUM 6.7 g/dL (6.4-8.2)
--- NOTE | 2019-06-26 07:37 | NUR ---
NEW BAG OF NS HUNG AT THIS TIME. PT RESTING COMFORTABLY IN BED, WITH EYES CLOSED, PETERS DRAINING YELLOW URINE TO GRAVITY. CALL LIGHT IN REACH, BEDSIDE RAILS X2, BED ALARM ON, NAD NOTED, WILL CONTINUE TO MONITOR.
[2019-06-26 09:04] VITALS: BP 129/58
--- NOTE | 2019-06-26 12:56 | NUR ---
BLOOD SUGAR OF 164, 8UNITS OF INSULIN GIVE PER S/S. ALSO EMPTIED 1000CC OUT OF PETERS CATHETER. PT DENIES ANY NEEDS AT THIS TIME, CALL LIGHT IN REACH, NAD NOTED,W ILL CONTINUE TO MONITOR.
--- NOTE | 2019-06-26 12:56 | NUR ---
Nutrition Follow-up: Diet: Diabetic PO intake: 65% avg x 6 meals Wt: 207# (up from 203# on 06/22) No BMs recorded Labs noted: Glu 73, Ca 8.1, Alb 2.5, elevated LFTs Meds noted: NS @ 125, Novolin, Humulin -Continue current diet as tolerated. -Offer nutrition supplements. -RD following.
[2019-06-26 12:59] VITALS: BP 127/52
--- NOTE | 2019-06-26 14:43 | NUR ---
PT UP TO CHAIR, DENIES ANY NEEDS AT THIS TIME. FAMILY AT BEDSIDE, NAD NOTED, WILL CONTINUE TO MONITOR.
[2019-06-26 16:50] VITALS: BP 146/92
--- NOTE | 2019-06-26 17:03 | NUR ---
BLOOD SUGAR OF 192, 8UNITS GIVEN PER S/S. PT DENIES ANY NEEDS AT THIS TIME. CALL LIGHT IN REACH, FAMILY AT BEDSIDE, NAD NOTED.
--- NOTE | 2019-06-26 19:30 | NUR ---
REPORT RECEIVED, WILL CONTINUE POC. PATIENT IS AAO, SITTING AT BEDSIDE. NO S/S OF DISTRESS NOTED, RR EVEN AND UNLABORED ON ROOM AIR. PATIENT DENIES FURTHER NEEDS AT THIS TIME. CL IN REACH, BED LOCKED AND LOWERED, NAOMY ALARM ON. WILL CTM.
[2019-06-26 20:00] VITALS: BP 122/44
--- NOTE | 2019-06-26 20:56 | NUR ---
BS 209, 12 UNITS OF INSULIN ADMINISTERED PER SLIDING SCALE. SNACK GIVEN.
--- NOTE | 2019-06-26 22:50 | NUR ---
PATIENT IV INFILTRATED, REMOVED IV WITH CATH TIP INTACT. DRESSED WITH GAUZE AND TAPE. NEW IV STARTED WITH 22G TO RT FA X1 ATTEMPT. PATIENT TOLERATED WELL.
[2019-06-27] VITALS: BP 107/48
--- NOTE | 2019-06-27 02:58 | NUR ---
I have reviewed this patient and I concur with the Shift Assessment completed by the Licensed Practical Nurse today this shift.
--- NOTE | 2019-06-27 05:42 | NUR ---
LOW GRADE FEVER, TYLENOL ADMINISTERED PER ORDERS.
[2019-06-27 06:03] LABS: BASOPHILS 0.1 % (0-2); HEMATOCRIT 32.8 % (42.0-54.0); HEMOGLOBIN 10.8 g/dL (13.5-17.5); IMMATURE GRANULOCYTES 0.3 % (0-5); LYMPHOCYTES 11.2 % (15-50); MCH 28.1 pg (26.0-34.0); MCHC 32.9 g/dL (31.0-37.0); MCV 85.4 fL (80.0-100.0); MEAN PLATELET VOLUME 10.7 fL (7.4-10.4); MONOCYTES 11.8 % (2-11); NEUTROPHILS 75.6 % (40-80); PLATELET COUNT 159 10x3/uL (130-400); RBC 3.84 10x6/uL (4.20-6.10); WBC 6.9 10x3/uL (4.8-10.8)
--- NOTE | 2019-06-27 06:06 | NUR ---
CALLED PHARMACY FOR MORE DAVID
[2019-06-27 06:34] LABS: ALBUMIN 2.5 g/dL (3.4-5.0); ANION GAP 14.5 mmol/L (8-16); BILIRUBIN - TOTAL 0.5 mg/dL (0.2-1.3); CALCIUM 8.6 mg/dL (8.5-10.1); CARBON DIOXIDE 23.4 mmol/L (21.0-32.0); POTASSIUM - SERUM 3.9 mmol/L (3.5-5.1); PROTEIN - SERUM 7.1 g/dL (6.4-8.2)
[2019-06-27 06:37] LABS: CREATININE - SERUM 2.9 mg/dL (0.6-1.3)
--- NOTE | 2019-06-27 10:12 | NUR ---
AM MEDS GIVEN AT THIS TIME. ALSO GAVE 50UNITS OF NOVOLIN. PT NOT FEELING WELL TODAY, DENIES ANY NEEDS AT THIS TIME. CALL LIGHT IN REACH, NAD NOTED, WILL CONTINUE TO MONITOR.
[2019-06-27 11:06] VITALS: BP 133/56
[2019-06-27 12:54] LABS: APPEARANCE HAZY (CLEAR); BILIRUBIN NEGATIVE (NEGATIVE); COLOR YELLOW (YELLOW); GLUCOSE 250 mg/dL (NEGATIVE); KETONE NEGATIVE (NEGATIVE); NITRITE NEGATIVE (NEGATIVE); PROTEIN TRACE mg/dL (NEGATIVE); UROBILINOGEN NORMAL (NORMAL)
[2019-06-27 12:55] LABS: AMORPHOUS SEDIMENT <1+ /lpf (NONE SEEN); BACTERIA FEW /hpf (NEGATIVE); EPITHELIAL CELLS 0-5 /hpf (0-5); GRANULAR CAST 0-5 /lpf (NONE SEEN); MUCUS <1+ /lpf (NONE SEEN); WHITE CELLS - URINE RARE /hpf (NEGATIVE)
[2019-06-27 15:09] VITALS: BP 162/68
--- NOTE | 2019-06-27 16:58 | NUR ---
BLOOD SUGAR OF 133, NO COVERAGE NEEDED PER S/S. GAVE 50UNIT OF NOVOLIN PER ORDER. PT DENIES ANY NEEDS AT THIS TIME. NOT WANTING TO EAT DINNER. CALL LIGHT IN REACH, NAD NOTED, WILL CONTINUE TO MONITOR.
[2019-06-27 18:26] VITALS: BP 164/76
--- NOTE | 2019-06-27 19:20 | NUR ---
REPORT RECEIVED, WILL CONTINUE POC. PATIENT IS AAO, AT BEDSIDE. EDUCATED PATIENT ON IMPORTANCE OF CALLING FOR HELP. NAOMY ALARM IS ON. CL IN REACH, BED LOCKED AND LOWERED. NO S/S OF DISTRESS NOTED, RR EVEN BUT LABORED ON EXERTION ON ROOM AIR. PATIENT DENIES FURTHER NEEDS AT THIS TIME. WILL CTM.
--- NOTE | 2019-06-27 19:48 | NUR ---
AT 1850 WENT TO CHECK ON PT BEFORE SHIFT CHANGE. FOUND PT ON THE FLOOR, WITH HIS RT SIDE OF HIS HEAD LEANING AGAINST THE RECLINER. IV PULLED OUT WITH FALL WITH CATHETER TIP INTACT. BLOOD WAS ON PT AND ON THE FLOOR FROM IV SITE. REDNESS NOTED TO RT SIDE OF BED, NO BLEEDING, LACERATION OR CONTUSION NOTED. PT A/O X4, NO ACUTE DISTRESS NOTED, GOT PT BACK TO BED AND PUT BED ALARM ON. EDUCATED PT ON THE IMPORTANCE OF CALLING FOR HELP AND NOT TO GET UP WITHOUT ANY ASSSITANCE. 1700- CALLED DR. NICHOLS AND INFORMED HIM ABOUT PT'S FALL. ORDER FOR Q4 NEURO CHECKS AND IF LOC CHANGES TO ORDER HEAD CT.
[2019-06-27 20:00] VITALS: BP 138/59
--- NOTE | 2019-06-27 20:34 | NUR ---
PATIENTS DAUGHTER IN LAW CALLED FOR UPDATE
--- NOTE | 2019-06-27 21:10 | NUR ---
PATIENT DAUGHTER CALLED, QUESTIONS ANSWERED.
[2019-06-28] VITALS (7 sets, daily range): BP systolic 136–153; BP diastolic 60–76
--- NOTE | 2019-06-28 01:52 | NUR ---
RESITED PATIENT IV WITH 22G TO RT FOREARM X2 ATTEMPTS. FLUIDS RESTARTED, IV ABX ADMINISTERED PER ORDERS. PATIENT TOLERATED WELL.
[2019-06-28 03:07] LABS: INFLUENZA A PCR Negative (Negative); INFLUENZA B PCR Negative (Negative)
--- NOTE | 2019-06-28 04:13 | NUR ---
I have reviewed this patient and I concur with the Shift Assessment completed by the Licensed Practical Nurse today this shift.
--- NOTE | 2019-06-28 04:49 | NUR ---
TEMP 101.3 AXILLARY, PRN TYLENOL ADMINISTERED PER ORDERS. WILL CTM.
--- NOTE | 2019-06-28 07:30 | NUR ---
A/A/OX3. DENIES ANY PAIN OR DISCOMFORT AT THIS TIME AND VOICES NO REQUESTS. IV PATENT TO RIGHT FOREARM WITHOUT REDNESS OR EDEMA. ASSESSMENT COMPLETED AND WILL CONTINUE POC.
[2019-06-28 08:11] LABS: SPE - A/G RATIO 0.8 (0.7-1.7); SPE - ALBUMIN 2.6 g/dL (2.9-4.4); SPE - ALPHA-1 GLOBULIN 0.4 g/dL (0.0-0.4); SPE - BETA GLOBULIN 1.1 g/dL (0.7-1.3); SPE - GAMMA GLOBULIN 0.7 g/dL (0.4-1.8); SPE - M-SPIKE Not Observed g/dL (Not Observed); SPE - TOTAL PROTEIN 5.9 g/dL (6.0-8.5)
[2019-06-28 09:58] LABS: BASOPHILS 0.1 % (0-2); EOSINOPHILS 0.3 % (0-7); HEMATOCRIT 31.4 % (42.0-54.0); HEMOGLOBIN 10.3 g/dL (13.5-17.5); IMMATURE GRANULOCYTES 0.3 % (0-5); LYMPHOCYTES 7.7 % (15-50); MCH 28.4 pg (26.0-34.0); MCHC 32.8 g/dL (31.0-37.0); MCV 86.5 fL (80.0-100.0); MEAN PLATELET VOLUME 10.7 fL (7.4-10.4); NEUTROPHILS 83.6 % (40-80); PLATELET COUNT 174 10x3/uL (130-400); RBC 3.63 10x6/uL (4.20-6.10); RDW 13.2 % (11.5-14.5)
[2019-06-28 10:02] LABS: WBC 8.7 10x3/uL (4.8-10.8)
[2019-06-28 10:06] LABS: ANION GAP 13.6 mmol/L (8-16); CALCIUM 8.1 mg/dL (8.5-10.1); CARBON DIOXIDE 23.6 mmol/L (21.0-32.0); CREATININE - SERUM 2.5 mg/dL (0.6-1.3); POTASSIUM - SERUM 4.2 mmol/L (3.5-5.1)
[2019-06-28 10:12] LABS: ALBUMIN 2.4 g/dL (3.4-5.0); BILIRUBIN - DIRECT 0.38 mg/dL (0.00-0.30); BILIRUBIN - INDIRECT 0.2 mg/dL (0.00-1.00); BILIRUBIN - TOTAL 0.58 mg/dL (0.2-1.3); PROTEIN - SERUM 5.9 g/dL (6.4-8.2)
[2019-06-28 16:08] LABS: ANTI-GLOMERULAR BASMENT MEMBRN 3 units (0-20)
[2019-06-28 17:08] LABS: ANCA - ANTIMYELOPEROXIDASE <9.0 U/mL (0.0-9.0); ANCA - ANTIPROTEINASE 3 <3.5 U/mL (0.0-3.5); ANCA - ATYPICAL <1:20 titer (Neg:<1:20); ANCA - CYTOPLASMIC <1:20 titer (Neg:<1:20); ANCA - PERINUCLEAR <1:20 titer (Neg:<1:20)
--- NOTE | 2019-06-28 17:23 | NUR ---
I HAVE REVIEWED THIS PATIENT AND I CONCUR WITH THE SHIFT ASSESSMENT COMPLETED BY THE LINE THERAPIST TODAY THIS SHIFT
--- NOTE | 2019-06-28 19:00 | NUR ---
EVENING ROUNDS COMPLETE. PT SITTING UP IN BED. NO SIGNS OF DISTRESS. PT DENIES ANY NEEDS OR PAIN AT THIS TIME. CL IN REACH, BED IN LOWEST POSITION.
[2019-06-29 04:30] VITALS: BP 142/63
--- NOTE | 2019-06-29 05:44 | NUR ---
PT CALLED AT THIS TIME CONCERED THAT PT NEEDS O2 AT THIS TIME. EXPLAINED TO THAT PT O2 SAT WAS WNL AND PT DID NOT SEEM TO BE IN DISTRESS. PT SEEMED TO UNDERSTAND. STATED "HE HAS NOT HAD A BATH SINCE TUESDAY, EVEN AFTER HE THREW UP ALL OVER HIMSELF THE OTHER DAY. THE OTHER NURSE YESTERDAY CAME IN TO GIVE HIM A BATH AND AFTER EVERYTHING HE HAD DONE I TOLD HER NOT TODAY. HE REALLY NEEDS A BATH TO BE DONE NOW" VOICED TO THAT WE WILL GET PT A BATH SOON WE CAN. RELAYED TO MECHANICAL DRAWING TEACHER NEED FOR BATH.
[2019-06-29 09:17] VITALS: BP 136/79
--- NOTE | 2019-06-29 11:57 | NUR ---
Nutrition Follow-up: Pt/ report poor appetite/PO intake. C/o nausea. Intake consists of mostly fluids. Likes Glucerna. Diet: Diabetic PO intake: 0-25% Wt: 214# Last BM: 06/29 Labs reviewed Meds reviewed -Continue current diet as tolerated. -+Glucerna with meals -[place] food preferences within diet restrictions. -RD following.
[2019-06-29 13:10] LABS: EBV - EARLY ANTIGEN AB IGG <9.0 U/mL (0.0-8.9); EBV - NUCLEAR ANTIGEN AB IGG >600.0 U/mL (0.0-17.9); EBV VIRAL CAPSID AB IGG >600.0 U/mL (0.0-17.9); EBV VIRAL CAPSID AB IGM <36.0 U/mL (0.0-35.9)
[2019-06-29 13:26] VITALS: BP 156/73
[2019-06-29 15:10] LABS: HEPATITIS C ANTIBODY 0.1 (0.0-0.9)
[2019-06-29 17:19] VITALS: BP 150/74
--- NOTE | 2019-06-29 18:32 | NUR ---
I HAVE REVIEWED THIS PATIENT AND I CONCUR WITH THE SHIFT ASSESSMENT COMPLETED BY THE STONEWORKER TODAY THIS SHIFT
--- NOTE | 2019-06-29 19:18 | NUR ---
RECEIVED REPORT, WILL ASSUME CARE OF PT, DENIES ANY NEEDS AT THIS TIME, BED IS LOW, SRX2, CALL LIGHT IN REACH, WILL CONTINUE PLAN OF CARE
[2019-06-29 20:00] VITALS: BP 153/68; BP 153/868
--- NOTE | 2019-06-29 21:22 | NUR ---
ASSIST PT TO RESTROOM
--- NOTE | 2019-06-29 21:28 | NUR ---
ASSIST PT FROM BATHROOM, BACK TO CHAIR
--- NOTE | 2019-06-29 22:15 | NUR ---
ASSIST PT TO BED, PLACED C-PAP ON
[2019-06-30] VITALS: BP 136/66; BP 233/103
--- NOTE | 2019-06-30 03:20 | NUR ---
I have reviewed this patient and I concur with the Shift Assessment completed by the Licensed Practical Nurse today this shift.
[2019-06-30 04:00] VITALS: BP 145/72
[2019-06-30 04:59] LABS: BASOPHILS 0.1 % (0-2); EOSINOPHILS 2.9 % (0-7); HEMATOCRIT 28.7 % (42.0-54.0); HEMOGLOBIN 9.3 g/dL (13.5-17.5); IMMATURE GRANULOCYTES 1.1 % (0-5); LYMPHOCYTES 12.1 % (15-50); MCH 27.8 pg (26.0-34.0); MCHC 32.4 g/dL (31.0-37.0); MCV 85.7 fL (80.0-100.0); MEAN PLATELET VOLUME 10.5 fL (7.4-10.4); MONOCYTES 7.6 % (2-11); NEUTROPHILS 76.2 % (40-80); RBC 3.35 10x6/uL (4.20-6.10); RDW 13.1 % (11.5-14.5)
[2019-06-30 05:02] LABS: PLATELET COUNT 223 10x3/uL (130-400)
[2019-06-30 05:10] LABS: ANION GAP 12.8 mmol/L (8-16); BILIRUBIN - TOTAL 0.56 mg/dL (0.2-1.3); CALCIUM 8.7 mg/dL (8.5-10.1); CREATININE - SERUM 1.9 mg/dL (0.6-1.3); POTASSIUM - SERUM 3.8 mmol/L (3.5-5.1); PROTEIN - SERUM 6.3 g/dL (6.4-8.2)
--- NOTE | 2019-06-30 07:43 | NUR ---
PT RESTING PEACFULLY, DID NOT WAKE I ENTERED. BREATHS EVEN/REGULAR/UNLABORED. NO SIGNS/SYMTPOMS OF ACUTE DISTRESS NOTED AT THIS TIME. CL IN REACH, SRX2.
[2019-06-30 09:20] VITALS: BP 136/80
--- NOTE | 2019-06-30 14:22 | NUR ---
I have reviewed this patient and I concur with the Shift Assessment completed by the Licensed Practical Nurse today this shift.
[2019-06-30 14:37] VITALS: BP 162/87
[2019-06-30 16:20] VITALS: BP 151/79
--- NOTE | 2019-06-30 19:35 | NUR ---
RECEIVED REPORT, WILL ASSUME CARE OF PT, ASSISTED PT TO CHAIR, CALL LIGHT IN REACH, WILL CONTINUE PLAN OF CARE
[2019-06-30 20:00] VITALS: BP 154/68
[2019-07-01] VITALS (7 sets, daily range): BP systolic 127–171; BP diastolic 64–85
--- NOTE | 2019-07-01 02:27 | NUR ---
I have reviewed this patient and I concur with the Shift Assessment completed by the Licensed Practical Nurse today this shift.
--- NOTE | 2019-07-01 07:38 | NUR ---
PT AWAKE AND ORIENTED, NO COMPLAINTS/CONCERNS. ALL QUESTIONS ANSWERED TO THE BEST OF MY ABILITY. NO FAMILY PRESENT AT THIS TIME. CL IN REACH, SRX2.
--- NOTE | 2019-07-01 11:26 | NUR ---
I have reviewed this patient and I concur with the Shift Assessment completed by the Licensed Practical Nurse today this shift.
--- NOTE | 2019-07-01 18:27 | NUR ---
PT AWAKE, ALERT AND ORIENTED. STATES SHE'S FEELING A LITTLE BETTER THAN YESTERDAY AND SHE KNOWS TOMORROW WILL BE EVEN BETTER. NO COMPLAINTS OR CONCERNS AT THIS TIME. PTS DAUGHTER BROUGHT HER HOME CPAP FOR USE. ANSWRED ALL QUESTIONS TO THE BEST OF MY ABILITY. CL IN REACH, SRX2.
--- NOTE | 2019-07-01 18:28 | NUR ---
PT HAS BEEN ALERT/CONFUSED. STATES HIS BOTTOM HAS BEEN HURTING, WANTS NEW MEPLEX NEXT TIME HE IS MANUVERED. ORDERED [place] FOR HIS BOTTOM. NO COMPLAINTS/CONCERNS, ALL QUESTIONS ANSWERED. HAS WENT HOME FOR THE NIGHT. CL IN REACH, SRX2.
--- NOTE | 2019-07-01 19:00 | NUR ---
REPORT RECEIVED, WILL CONTINUE POC. PATIENT IS AAO, UP WITH ASSIST/WALKER. NO S/S OF DISTRESS OBSERVED, RR EVEN AND UNLABORED ON ROOM AIR. PATIENT DENIES NEEDS AT THIS TIME. CL IN REACH, BED LOCKED AND LOWERED. WILL CTM.
--- NOTE | 2019-07-01 20:30 | NUR ---
ASSISTED PATIENT TO BATHROOM WITH WALKER. MED BM NOTED. ASSISTED PATIENT TO CHAIR. CL IN REACH.
[2019-07-02 04:36] LABS: BASOPHILS 0.3 % (0-2); EOSINOPHILS 3.3 % (0-7); HEMATOCRIT 30.6 % (42.0-54.0); HEMOGLOBIN 9.8 g/dL (13.5-17.5); LYMPHOCYTES 17.2 % (15-50); MCH 27.8 pg (26.0-34.0); MCV 86.7 fL (80.0-100.0); MONOCYTES 8.8 % (2-11); NEUTROPHILS 69.4 % (40-80); PLATELET COUNT 255 10x3/uL (130-400); RBC 3.53 10x6/uL (4.20-6.10); RDW 13.1 % (11.5-14.5); WBC 7.3 10x3/uL (4.8-10.8)
[2019-07-02 04:38] VITALS: BP 162/78
[2019-07-02 04:39] LABS: ANION GAP 14.6 mmol/L (8-16); CARBON DIOXIDE 25.4 mmol/L (21.0-32.0); CREATININE - SERUM 1.6 mg/dL (0.6-1.3)
--- NOTE | 2019-07-02 05:41 | NUR ---
PATIENT REFUSED BOTH NOVOLIN AND HUMILIN THIS AM. BS 101. PATIENT STATED HE DOESN'T TAKE THE NOVOLIN WHEN HIS BS IS THAT LOW.
--- NOTE | 2019-07-02 08:05 | NUR ---
PT SITTING UP IN BED. RR EVEN AND UNLABORED. PT HYDABURG, STATES TOOK HEARING AIDS HOME TO CHARGE THEM. DENIES NEEDS OR PAIN AT THIS TIME. BED IN LOWEST POSITION. DROPLET PRECAUTIONS IN PLACE. CALL LIGHT WITHIN REACH. WILL CONTINUE TO MONITOR.
[2019-07-02 09:25] VITALS: BP 157/78
--- NOTE | 2019-07-02 10:33 | MORECARE ---
CASE MANAGEMENT DISCHARGE SUMMARY PATIENT: MACK FUNG UNIT: [id number] ADM DATE: 06/22/19 AGE: 79 : 40 SEX: M ROOM/BED: D.2107 AUTHOR: JORDANA THOMPSON PHYSICIAN: REFERRING PHYSICIAN: ZULEMA STARR MD DATE OF SERVICE: 07/02/19 Discharge Plan Patient Name: MACK FUNG Facility: [facility]:[place] : 1940 Planned Disposition: Anticipated Discharge Date: Discharge Date: Expected LOS: Initial Reviewer: [id number] Initial Review Date: 07/02/2019 Generated: 07/02/19 11:33 am Patient Name: MACK FUNG Page [id number] at 1033 All edits/amendments must be made on the electronic document DICTATION DATE: 07/02/19 1033 CVT RN: LUIS 07/02/19 1033 RPT#: [id number] DC DATE: STATUS: ADM IN [facility] [address] [place] [address] END OF REPORT
--- NOTE | 2019-07-02 10:41 | MORECARE ---
CASE MANAGEMENT DISCHARGE SUMMARY PATIENT: MACK FUNG UNIT: [id number] ADM DATE: 06/22/19 AGE: 79 : 40 SEX: M ROOM/BED: D.2107 AUTHOR: JORDANA THOMPSON PHYSICIAN: REFERRING PHYSICIAN: ZULEMA STARR MD DATE OF SERVICE: 07/02/19 Discharge Plan Patient Name: MACK FUNG Facility: [facility]:[place] : 1940 Planned Disposition: Anticipated Discharge Date: Discharge Date: Expected LOS: Initial Reviewer: [id number] Initial Review Date: 07/02/2019 Generated: 07/02/19 11:41 am Comments DCP- Discharge Planning Updated by [email or web address]: Alejandra Barriga on 07/02/19 9:[address] Patient Name: MACK FUNG Admission Status: Urgent Accout number: [id number] Admission Date: 06-22-2019 : 1940 Admission Diagnosis: Attending: ZULEMA STARR Current LOS: 10 Anticipated DC Date: Planned Disposition: Primary Insurance: MEDICARE A & B Discharge Planning Comments: CM MET WITH PATIENT TO DISCUSS DC PLANNING/NEEDS AFTER OBTAINING VERBAL CONSENT. STATES HIS HAS GONE HOME TO GET HIS HEARING AIDS AND IS VERY HARD OF HEARING. PATIENT WANTS ME TO TALK TO HIS ARISTIDES. I CALLED ARISTIDES AND SPOKE WITH HER ABOUT DC PLANNING/NEEDS. SHE STATES SHE THINKS HE WOULD BENEFIT FROM [facility] OR HOME HEALTH. SHE WILL BE HERE AT APPROX 1130 TODAY AND I WILL TAKE HER HH INFORMATION AND AN PHYLICIA FORM. Concrete Finisher: Alejandra Alves DP export: 07/02/19 9:33 Patient Name: MACK FUNG Page 42818 at 1041 All edits/amendments must be made on the electronic document DICTATION DATE: 07/02/19 1041 AUTOMATION AND CONTROLS MANAGER: LUIS 07/02/19 1041 RPT#: [id number] DC DATE: STATUS: ADM IN [facility] [address] [place] [address] END OF REPORT
[2019-07-02 12:00] VITALS: BP 120/64
--- NOTE | 2019-07-02 12:00 | MORECARE ---
CASE MANAGEMENT DISCHARGE SUMMARY PATIENT: MACK FUNG UNIT: [id number] ADM DATE: 06/22/19 AGE: 79 : 40 SEX: M ROOM/BED: D.2104 AUTHOR: JAYDOC PHYSICIAN: REFERRING PHYSICIAN: ZULEMA STARR MD DATE OF SERVICE: 07/02/19 Discharge Plan Patient Name: MACK FUNG Facility: [facility]:[place] : 1940 Planned Disposition: Anticipated Discharge Date: Discharge Date: Expected LOS: Initial Reviewer: [id number] Initial Review Date: 07/02/2019 Generated: 07/02/19 12:59 pm Comments DCP- Discharge Planning Updated by [email or web address]: Alejandra Barriga on 07/02/19 10:[address] Patient Name: MACK FUNG Admission Status: Urgent Accout number: [id number] Admission Date: 06-22-2019 : 1940 Admission Diagnosis: Attending: ZULEMA STARR Current LOS: 10 Anticipated DC Date: Planned Disposition: Primary Insurance: MEDICARE A & B Discharge Planning Comments: CM MET WITH PATIENT TO DISCUSS DC PLANNING/NEEDS AFTER OBTAINING VERBAL CONSENT. STATES HIS HAS GONE HOME TO GET HIS HEARING AIDS AND IS VERY HARD OF HEARING. PATIENT WANTS ME TO TALK TO HIS ARISTIDES. I CALLED ARISTIDES AND SPOKE WITH HER ABOUT DC PLANNING/NEEDS. SHE STATES SHE THINKS HE WOULD BENEFIT FROM [facility] OR HOME HEALTH. SHE WILL BE HERE AT APPROX 1130 TODAY AND I WILL TAKE HER HH INFORMATION AND AN MICHAEL FORM. Trommel Tender: Alejandra Barriga Appended by Alejandra Barriga on 07/02/2019 11:53 CDT: FAMILY WOULD LIKE A REHAB CONSULT, IF PATIENT TOO HIGH FUNTIONING FOR IPR THEN IS INTERESTED IN [facility]. MICHAEL SIGNED FOR [facility]. Coverage Notice Reviewer: [id number] - Alejandra Barriga Notice Issued Date-Time: 07/02/2019 11:52 Notice Type: Patient Choice Letter Notice Delivered To: Family Member Relationship to Patient: Property Insurance Claims Examiner Name: Delivery Method: HAND - Hand Delivered Nohemy Days: Prior Verbal Notification: Recipient Understood Notice: Yes Recipient Signature: Yes Med Rec Note Co-signed by Attending: Coverage Notice Comment: [facility] Last DP export: 07/02/19 9:41 Patient Name: MACK FUNG Page 50088 at 1200 All edits/amendments must be made on the electronic document DICTATION DATE: 07/02/191158 OUTSIDE SALES REPRESENTATIVE INSURANCE: LUIS 07/02/191158 RPT#: [id number] DC DATE: STATUS: ADM IN [facility] [address] [place] [address] END OF REPORT
--- NOTE | 2019-07-02 12:00 | NUR ---
REDNESS NOTED TO COCCYX. MEPILEX PLACED.
[2019-07-02 12:09] LABS: ANA REFLEX - DIRECT Negative (Negative)
[2019-07-02 13:09] LABS: EHRLICHIA CHAFF IGG Negative (Neg:<1:64); EHRLICHIA CHAFF IGM Negative (Neg:<1:20); HGE IGG TITER Negative (Neg:<1:64); HGE IGM TITER Negative (Neg:<1:20)
[2019-07-02] MEDS ORDERED: AUGMENTIN 875-11 TAB PO (14:13)
--- NOTE | 2019-07-02 14:39 | NUR ---
UPON ADMIT, PATIENT REPORTS TO HAVING A FLU SHOT THIS YEAR.
--- NOTE | 2019-07-02 15:14 | MORECARE ---
CASE MANAGEMENT DISCHARGE SUMMARY PATIENT: MACK FUNG UNIT: [id number] ADM DATE: 06/22/19 AGE: 79 : 40 SEX: M ROOM/BED: D.2106 AUTHOR: JAY,DOC PHYSICIAN: REFERRING PHYSICIAN: ZULEMA STARR MD DATE OF SERVICE: 07/02/19 Discharge Plan Patient Name: MACK FUNG Facility: [facility]:[place] : 1940 Planned Disposition: Anticipated Discharge Date: Discharge Date: Expected LOS: Initial Reviewer: [id number] Initial Review Date: 07/02/2019 Generated: 07/02/19 4:14 pm DCP- Discharge Planning Updated by [email or web address]: Alejandra Barriga on 07/02/19 10:[address] Patient Name: MACK FUNG Admission Status: Urgent Accout number: [id number] Admission Date: 06-22-2019 : 1940 Admission Diagnosis: Attending: ZULEMA STARR Current LOS: 10 Anticipated DC Date: Planned Disposition: Primary Insurance: MEDICARE A & B Discharge Planning Comments: CM MET WITH PATIENT TO DISCUSS DC PLANNING/NEEDS AFTER OBTAINING VERBAL CONSENT. STATES HIS HAS GONE HOME TO GET HIS HEARING AIDS AND IS VERY HARD OF HEARING. PATIENT WANTS ME TO TALK TO HIS ARISTIDES. I CALLED ARISTIDES AND SPOKE WITH HER ABOUT DC PLANNING/NEEDS. SHE STATES SHE THINKS HE WOULD BENEFIT FROM [facility] OR HOME HEALTH. SHE WILL BE HERE AT APPROX 1130 TODAY AND I WILL TAKE HER HH INFORMATION AND AN MICHAEL FORM. Vulcanized Fiber Unit Operator: Alejandra Barriga Appended by Alejandra Barriga on 07/02/2019 11:53 CDT: FAMILY WOULD LIKE A REHAB CONSULT, IF PATIENT TOO HIGH FUNTIONING FOR IPR THEN IS INTERESTED IN [facility]. MICHAEL SIGNED FOR [facility]. Coverage Notice Reviewer: [id number] - Alejandra Barriga Notice Issued Date-Time: 07/02/2019 11:52 Notice Type: Patient Choice Letter Notice Delivered To: Family Member Relationship to Patient: Meal Attendant Name: Delivery Method: HAND - Hand Delivered Nohemy Days: Prior Verbal Notification: Recipient Understood Notice: Yes Recipient Signature: Yes Med Rec Note Co-signed by Attending: Coverage Notice Comment: [facility] Last DP export: 07/02/19 11:00 Patient Name: MACK FUNG Page 78532 at 1514 All edits/amendments must be made on the electronic document DICTATION DATE: 07/02/191513 FAMILY LAW LEGAL ASSISTANT: LUIS 07/02/191513 RPT#: [id number] DC DATE: STATUS: ADM IN [facility] [address] [place] [address] END OF REPORT
--- NOTE | 2019-07-02 15:24 | MORECARE ---
CASE MANAGEMENT DISCHARGE SUMMARY PATIENT: MACK FUNG UNIT: [id number] ADM DATE: 06/22/19 AGE: 79 : 40 SEX: M ROOM/BED: D.210 AUTHOR: JORDANA THOMPSON PHYSICIAN: REFERRING PHYSICIAN: ZULEMA STARR MD DATE OF SERVICE: 07/02/19 Discharge Plan Patient Name: MACK FUNG Facility: [facility]:[place] : 1940 Planned Disposition: Anticipated Discharge Date: Discharge Date: Expected LOS: Initial Reviewer: [id number] Initial Review Date: 07/02/2019 Generated: 07/02/19 4:24 pm Comments DCP- Discharge Planning Updated by [email or web address]: Alejandra Barriga on 07/02/19 2:[address] Patient Name: MACK FUNG Admission Status: Urgent Accout number: [id number] Admission Date: 06-22-2019 : 1940 Admission Diagnosis: Attending: ZULEMA STARR Current LOS: 10 Anticipated DC Date: Planned Disposition: Primary Insurance: MEDICARE A & B Discharge Planning Comments: CM MET WITH PATIENT TO DISCUSS DC PLANNING/NEEDS AFTER OBTAINING VERBAL CONSENT. STATES HIS HAS GONE HOME TO GET HIS HEARING AIDS AND IS VERY HARD OF HEARING. PATIENT WANTS ME TO TALK TO HIS ARISTIDES. I CALLED ARISTIDES AND SPOKE WITH HER ABOUT DC PLANNING/NEEDS. SHE STATES SHE THINKS HE WOULD BENEFIT FROM [facility] OR HOME HEALTH. SHE WILL BE HERE AT APPROX 1130 TODAY AND I WILL TAKE HER HH INFORMATION AND AN MICHAEL FORM. Lasting Room Machine Operator: Alejandra Barriga Appended by Alejandra Barriga on 07/02/2019 11:53 CDT: FAMILY WOULD LIKE A REHAB CONSULT, IF PATIENT TOO HIGH FUNTIONING FOR IPR THEN IS INTERESTED IN [facility]. MICHAEL SIGNED FOR [facility]. Appended by Alejandra Barriga on 07/02/2019 15:20 CDT: I CONTACTED RAY WITH [facility] AND FAXED THEM THE REFERRAL. External Providers External Provider: [facility] Next Contact Date: Service Request Date: Service Type: Resolution: Reviewer: Comments: Coverage Notice Reviewer: [id number] - Alejandra Barriga Notice Issued Date-Time: 07/02/2019 11:52 Notice Type: Patient Choice Letter Notice Delivered To: Family Member Relationship to Patient: Registered Clinical Dietitian Name: Delivery Method: HAND - Hand Delivered Nohemy Days: Prior Verbal Notification: Recipient Understood Notice: Yes Recipient Signature: Yes Med Rec Note Co-signed by Attending: Coverage Notice Comment: michael tinsley Last DP export: 07/02/19 2:14 Patient Name: MACK FUNG Page 58248 at 1524 All edits/amendments must be made on the electronic document DICTATION DATE: 07/02/191523 PICKER FEEDER: LUIS 07/02/191523 RPT#: [id number] DC DATE: STATUS: ADM IN [facility] [address] [place] [address] END OF REPORT
--- NOTE | 2019-07-02 15:37 | MORECARE ---
CASE MANAGEMENT DISCHARGE SUMMARY PATIENT: MACK FUNG UNIT: [id number] ADM DATE: 06/22/19 AGE: 79 : 40 SEX: M ROOM/BED: D.2100 AUTHOR: JAYDOC PHYSICIAN: REFERRING PHYSICIAN: ZULEMA STARR MD DATE OF SERVICE: 07/02/19 Discharge Plan Patient Name: MACK FUNG Facility: [facility]:[place] : 1940 Planned Disposition: Anticipated Discharge Date: Discharge Date: Expected LOS: Initial Reviewer: [id number] Initial Review Date: 07/02/2019 Generated: 07/02/19 4:37 pm Comments DCP- Discharge Planning Updated by [id number]: Alejandra Barriga on 07/02/19 2:[address] Patient Name: MACK FUNG Admission Status: Urgent Accout number: [id number] Admission Date: 06-22-2019 : 1940 Admission Diagnosis: Attending: ZULEMA STARR Current LOS: 10 Anticipated DC Date: Planned Disposition: Primary Insurance: MEDICARE A & B Discharge Planning Comments: CM MET WITH PATIENT TO DISCUSS DC PLANNING/NEEDS AFTER OBTAINING VERBAL CONSENT. STATES HIS HAS GONE HOME TO GET HIS HEARING AIDS AND IS VERY HARD OF HEARING. PATIENT WANTS ME TO TALK TO HIS ARISTIDES. I CALLED ARISTIDES AND SPOKE WITH HER ABOUT DC PLANNING/NEEDS. SHE STATES SHE THINKS HE WOULD BENEFIT FROM [facility] OR HOME HEALTH. SHE WILL BE HERE AT APPROX 1130 TODAY AND I WILL TAKE HER HH INFORMATION AND AN MICHAEL FORM. Senior Ios Developer: Alejandra Barriga Appended by Alejandra Barriga on 07/02/2019 11:53 CDT: FAMILY WOULD LIKE A REHAB CONSULT, IF PATIENT TOO HIGH FUNTIONING FOR IPR THEN IS INTERESTED IN [facility]. MICHAEL SIGNED FOR [facility]. Appended by Alejandra Barriga on 07/02/2019 15:20 CDT: I CONTACTED RAY WITH [facility] AND FAXED THEM THE REFERRAL. Appended by Alejandra Barriga on 07/02/2019 15:26 CDT: [facility] WILL SEE PATIENT TOMORROW. Coverage Notice Reviewer: [id number] - Alejandra Barriga Notice Issued Date-Time: 07/02/2019 11:52 Notice Type: Patient Choice Letter Notice Delivered To: Family Member Relationship to Patient: Construction Carpenters Helper Name: Delivery Method: HAND - Hand Delivered Nohemy Days: Prior Verbal Notification: Recipient Understood Notice: Yes Recipient Signature: Yes Med Rec Note Co-signed by Attending: Coverage Notice Comment: michael tisnley Last DP export: 07/02/19 2:24 Patient Name: MACK FUNG Page 90715 at 1537 All edits/amendments must be made on the electronic document DICTATION DATE: 07/02/191535 POU[place]O KURA [place]AUP[place]A MAORI: LUIS 07/02/19 153 RPT#: [id number] DC DATE: STATUS: ADM IN [facility] [address] [place] [address] END OF REPORT
--- NOTE | 2019-07-02 15:50 | NUR ---
D/C INSTURCTIONS REVIEWED WITH PT AND FAMILY MEMEBER. SPENT SEVERAL MINUTES EDUCATING PETERS CARE, BLADDER TRAINING, AND SWITCHING TO LEG BAG. BOTH PT AND SPOUSE VERBALIZED UNDERSTANDING AND DID RETURN DEMONSTRATION. IV D/C WITH CATHETER TIP INTACT. PT LEFT VIA WHEELCHAIR TO PERSONAL VEHICLE WITH ALL BELONGINGS.
--- NOTE | 2019-07-02 16:38 | NUR ---
Rehab Note- Acute Inpatient Rehab prescreen order received. Spoke with YOEL Rawls & states that the patient wants to discharge home with home health. Thank you for this referral! Alla Busch RN Clinical Liaison, [facility] Rehab
--- NOTE | 2019-07-03 09:52 | MORECARE ---
CASE MANAGEMENT DISCHARGE SUMMARY PATIENT: MACK FUNG UNIT: [id number] ADM DATE: 06/22/19 AGE: 79 : 40 SEX: M ROOM/BED: D.2106 AUTHOR: JORDANA THOMPSON PHYSICIAN: REFERRING PHYSICIAN: ZULEMA STARR MD DATE OF SERVICE: 07/03/19 Discharge Plan Patient Name: MACK FUNG Facility: [facility]:[place] : 1940 Planned Disposition: Home with Home Health Anticipated Discharge Date: 07/02/19 Discharge Date: 07/02/2019 Expected LOS: 10 Initial Reviewer: [email or web address] Initial Review Date: 07/02/2019 Generated: 07/03/19 10:52 am Comments DCP- Discharge Planning Updated by [email or web address]: Alejandra Barriga on 07/02/19 2:[address] Patient Name: MACK FUNG Admission Status: Urgent Accout number: [id number] Admission Date: 06-22-2019 : 1940 Admission Diagnosis: Attending: ZULEMA STARR Current LOS: 10 Anticipated DC Date: Planned Disposition: Primary Insurance: MEDICARE A & B Discharge Planning Comments: CM MET WITH PATIENT TO DISCUSS DC PLANNING/NEEDS AFTER OBTAINING VERBAL CONSENT. STATES HIS HAS GONE HOME TO GET HIS HEARING AIDS AND IS VERY HARD OF HEARING. PATIENT WANTS ME TO TALK TO HIS ARISTIDES. I CALLED ARISTIDES AND SPOKE WITH HER ABOUT DC PLANNING/NEEDS. SHE STATES SHE THINKS HE WOULD BENEFIT FROM [facility] OR HOME HEALTH. SHE WILL BE HERE AT APPROX 1130 TODAY AND I WILL TAKE HER HH INFORMATION AND AN MICHAEL FORM. [facility] Representatives: Alejandra Barriga Appended by Alejandra Barriga on 07/02/2019 11:53 CDT: FAMILY WOULD LIKE A REHAB CONSULT, IF PATIENT TOO HIGH FUNTIONING FOR [facility] THEN IS INTERESTED IN [facility]. MICHAEL SIGNED FOR [facility]. Appended by Alejandra Barriga on 07/02/2019 15:20 CDT: I CONTACTED RAY WITH [facility] AND FAXED THEM THE REFERRAL. Appended by Alejandra Barriga on 07/02/2019 15:26 CDT: [facility] WILL SEE PATIENT TOMORROW. Coverage Notice Reviewer: [email or web address] - Alejandra Barriga Notice Issued Date-Time: 07/02/2019 11:52 Notice Type: Patient Choice Letter Notice Delivered To: Family Member Relationship to Patient: Pension Consultant Name: Delivery Method: HAND - Hand Delivered Nohemy Days: Prior Verbal Notification: Recipient Understood Notice: Yes Recipient Signature: Yes Med Rec Note Co-signed by Attending: Coverage Notice Comment: michael tinsley Last DP export: 07/02/19 2:37 Patient Name: MACK FUNG Page [id number] at 0952 All edits/amendments must be made on the electronic document DICTATION DATE: 07/03/19951 CONTESTANT COORDINATOR: LUIS 07/03/19951 RPT#: [id number] DC DATE:07/02/19 STATUS: DIS IN [facility] [address] [place] [address] END OF REPORT
[2019-07-03 15:10] LABS: RMSF IGM 1.34 index (0.00-0.89)
[2019-07-03 16:08] LABS: F. TULARENSIS - IGG Negative (Negative); F. TULARENSIS - IGM Negative (Negative)
[2019-07-13 14:23] LABS: UPE RAND - ALBUMIN 66.4; UPE RAND - ALPHA 1 GLOBULIN 2.6; UPE RAND - ALPHA 2 GLOBULIN 8.5
[2019-07-13 14:24] LABS: UPE RAND - BETA GLOBULIN 13.5
== END 2019-07-02 17:16 | disposition home health service (06) | DRG 94 ==
LOC: D.M2 16:45
PROVIDERS: Family Medicine; Internal Medicine Nephrology; ADMIT Family Medicine; ATTEND Family Medicine
DX: G61.0 Guillain-Barre syndrome (principal); N17.0 Acute kidney failure with tubular necrosis; J18.1 Lobar pneumonia, unspecified organism; R50.9 Fever, unspecified; R53.1 Weakness; I95.9 Hypotension, unspecified; E11.22 Type 2 diabetes mellitus with diabetic chronic kidney disease; I12.9 Hypertensive chronic kidney disease with stage 1 through stage 4 chronic kidney disease, or unspecified chronic kidney disease; N18.3 Chronic kidney disease, stage 3 (moderate); N13.9 Obstructive and reflux uropathy, unspecified; R74.8 Abnormal levels of other serum enzymes; B27.00 Gammaherpesviral mononucleosis without complication

== ENCOUNTER → 2019-11-28 09:17 | Outpatient (CLI) | payer MEDICARE, OTHER ==
[2019-06-23 11:37] VITALS: BMI 27.5
[~2019-11-28 09:17] MED LIST changes: +AUGMENTIN 875-11 TAB PO
== END | disposition home or self-care (01) ==
LOC: D.US 10-24 09:00
PROVIDERS: ATTEND Internal Medicine Cardiovascular Disease
DX: I65.23 Occlusion and stenosis of bilateral carotid arteries (principal)